=== PATIENT | male | born 1960 | race Caucasian/White ===

== ENCOUNTER 2025-04-24 10:54 | Outpatient (CLI) | payer OTHER, SELFPAY ==
--- NOTE | ~2025-04-24 | US_ITS ---
LEFT LOWER EXTREMITY VENOUS DUPLEX Clinical History: I82.409 - Acute embolism and thrombosis of unspecified de... COMPARISON: None TECHNIQUE: Grayscale, color, duplex/spectral Doppler sonography left leg FINDINGS: Left leg common femoral, femoral, popliteal, and calf veins compressible and color Doppler patent. Normal augmentation with distal compression. No internal echoes. IMPRESSION: 1. No left leg DVT. Reviewed, dictated and finalized at location R. GER QUALITY IMPRESSION: 1. No left leg DVT.
--- NOTE | ~2025-04-24 | XR_ITS ---
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 Findings: No acute fracture or malalignment. No significant degenerative changes. Soft tissues unremarkable. Impression: No acute fracture or malalignment. Reviewed, dictated and finalized at location P. STRIAL MECHANIC Impression: No acute fracture or malalignment.
--- OUTSIDE RECORDS SUMMARY | 2025-04-24 11:40 | XMS_ITS | Clinical Summary ---
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 Gender Identity Not on file Sexual Orientation Not on file Plan of Treatment Health Maintenance Due Date Last Done Comments Hepatitis C Virus (HCV) Screening 1960 TdaP Immunization 1960 Cologuard 2004 Colonoscopy 2004 Colorectal Cancer Screening 2004 Immunochemical Fecal Occult Blood 2004 Pneumococcal Immunization (5 0+ years) (1 of 1 - PCV) 2009 Zoster Immunization (1 of 2) 2009 Influenza Immunization (#1) 2025 SARS-COV-2 Immunization ( - season) 2025 09/16/2020, 08/26/2020 Respiratory Syncytial Virus (RSV) Immunization (Adult) (1 - 1-dose 75+ series) 2034 Hepatitis B Immunization Aged Out No longer eligible based on patient's age to complete this topic Human Papillomavirus (HPV) Immunization Aged Out No longer eligible b ased on patient's age to complete this topic Meningococcal Immunization (ACWY) Aged Out No longer eligible b ased on patient's age to complete this topic Rotavirus Immunization Aged Out No lo nger eligible based on patient's age to complete this topic
--- OUTSIDE RECORDS SUMMARY | 2025-04-24 11:40 | XMS_ITS | Clinical Summary ---
Author Organization [facility] Address [address] [place] [id number] Care Team Providers Care Technical Fellow Name Role Phone Jer Fuller MD Primary Care Provider [phone] Social History Tobacco Use Types Packs/Day Years Used Date Smoking Tobacco: Never Assessed Sex and Gender Information Value Date Recorded Sex Assigned at Not on file Legal Sex Male 2:45 PM CDT Gender Identity Not on file Sexual Orientation Not on file Plan of Treatment Health Maintenance Due Date Last Done Comments Colorectal Cancer Screening Colonoscopy (10 Years) 1960 Hepatitis C 1977 DTaP, Tdap and Td Vaccines ( 1 - Tdap) 1978 Pneumococcal Vaccine: 50+ Ye ars (1 of 1 - PCV) 2009 Zoster Vaccines (1 of 2) 2009 COVID-19 Vaccine (2024-2 6 season) 2025 Influenza Adult (#1) 2025 RSV Immunization or 60+ Years (1 - 1-dose 75+ series) 2034 Hepatitis A Vaccines Aged Out No long er eligible based on patient's age to complete this topic Meningococcal B Vaccine Aged Out No l onger eligible based on patient's age to complete this topic Meningococcal Vaccine Aged Out No melissa fausto eligible based on patient's age to complete this topic RSV Immunizations Under 20 Months Aged Out No longer eligible based on patient's age to complete this topic Insurance * Guarantor: Ron Marie Account Type Relation to Patient Date of Phone Billing Address Personal/Family Self 1960 [id number] [facility] [address] [facility] Care Teams Technical Fellow Relationship Specialty Start Date End Date Jer Fuller MD [address] [address] PCP - General INTERNAL MEDICINE 01/07/19
--- OUTSIDE RECORDS SUMMARY | 2025-04-24 11:40 | XMS_ITS | Clinical Summary ---
Author Organization [facility] [address] Address [address] [place] [address] Phone Care Team Providers Care Tile And Marble Installer Name Role Phone Jer Fuller MD Primary Care Provider + [phone] Allergies Active Allergy Reactions Criticality Noted Date Comments Neomycin Fever Low 05/06/2014 Medications ALBUTEROL SULFATE (PROAIR HFA INHALATION) Take by inhalation. Active benazepril-hydr ochlorothiazide (LOTENSIN HCT) 20-25 mg Tablet Take 1 Tab by mouth daily. Active albuterol (PROVENTIL,VENT GINI) 90 mcg/actuation Aerosol inhale 2 puff by Inhalation route every 4 - 6 hours for as needed 0 Active esomeprazole (NEXIUM) 40 mg Capsule, Delayed Release(E.C.) take 1 capsule (40MG) by ORAL route every day 0 Active PROAIR HFA 90 mcg/actuation inhaler 4 Active clobetasol (TEMOVATE) 0.05 % Ointment 0 4 Active AMPHETAMINE SALT COMBO 10 mg tablet 0 5 Active budesonide-form oterol (SYMBICORT) 160-4.5 mcg/actuation HFA Aerosol Inhaler Take 2 Puffs by inhalation 2 times daily. Active dextroamphetami ne-amphetamine (ADDERALL) 10 mg tablet Take 10 mg by mouth daily. Active doxycycline hyclate (VIBRAMYCIN) 100 mg capsule Take 1 Capsule (100 mg) by mouth 2 times daily. 14 Capsule 9 Active Active Problems Problem Noted Date Diagnosed Date Contact dermatitis and eczema 09/16/2014 ADD (attention deficit disorder) 06/20/2014 Asthma 06/20/2014 Eczema 06/20/2014 MRSA infection 06/20/2014 Unspecified essential hypertension 12/25/2007 Family History Medical History Relation Name Comments Diabetes Father Stroke Father Hypertension Mother Stroke Mother Relation Name Status Comments Father Alive Mother Alive Social History Tobacco Use Types Packs/Day Years Used Date Smoking Tobacco: Every Day Cigarettes Tobacco Cessation:Ready to Q uit: No; Counseling Given: Yes Alcohol Use Standard Drinks/Week Comments No 0 (1 standard drink = 0.6 oz pur e alcohol) Sex and Gender Information Value Date Recorded Sex Assigned at Not on file 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 Gender Identity Not on file Sexual Orientation Not on file Last Filed Vital Signs Vital Sign Reading Time Taken Comments Blood Pressure 122/80 07/13/2018 8:01 AM MACHINE BINDING FOLDER Pulse 64 09/12/2014 9:29 AM CDT Temperature 36.7 C (98.1 F) 09/12/2014 9:29 AM CDT Respiratory Rate 18 07/18/2014 4:25 PM MACHINE BINDING FOLDER Oxygen Saturation 99% 09/12/2014 9:29 AM CDT Inhaled Oxygen Concentration - - Weight 81.6 kg (180 lb) 07/13/2018 8:01 AM MACHINE BINDING FOLDER Height 182.9 cm (6') 07/13/2018 8:01 AM MACHINE BINDING FOLDER Body Mass Index 24.41 07/13/2018 8:01 AM MACHINE BINDING FOLDER Plan of Treatment Health Maintenance Due Date Last Done Comments DTAP/TDAP/TD VACCINES (1 - Tdap) 1978 PNEUMOCOCCAL VACCINE 50+ YEARS (1 of 2 - PCV) 07/17/18 79 COLORECTAL SCREENING 2004 Colorectal Cancer Screening 2004 FIT-DNA Q 3 years 2004 FIT/FOBT Q 1 year 2004 Flex Sig/CT Colonography Q 5 years 2004 RSV VACCINE (60+ or ) (1 - Risk 50-74 years 1-dose series) 2009 ZOSTER VACCINE (1 of 2) 2009 INFLUENZA VACCINE (#1) 2024 Insurance [facility] [employer] PPO [id number] Care Teams Tile And Marble Installer Relationship Specialty Start Date End Date Jer Fuller MD PCP - General Internal Medicine 05/06/14
== END 2025-04-24 10:55 | disposition home or self-care (01) ==
PROVIDERS: PCP Emergency Medicine; Visit Provider Emergency Medicine
DX: I82.409 Acute embolism and thrombosis of unspecified deep veins of unspecified lower extremity (principal); M79.89 Other specified soft tissue disorders
CPT/HCPCS: 73590; 93971